=== PATIENT | female | born 1990 | race Caucasian/White ===

== ENCOUNTER 2024-01-16 14:50 | Outpatient (REF) | payer OTHER, SELFPAY ==
[2024-01-16 15:11] LABS: MANUAL DIFF FLAG NO
[2024-01-16 15:23] LABS: Basophils Percent Auto 0.4 % (0-2); Eosinophils Absolute Auto 0.1 X10*3/uL (0.0-0.4); Eosinophils Percent Auto 1.3 % (0-4); Hematocrit 42.6 % (37.0-47.0); Hemoglobin 14.3 g/dl (12.0-16.0); Imm Gran Abs Auto 0.06 X10*3/uL (0.00-0.03); Imm Gran Pct Auto 0.8 % (0.0-0.4); Lymphocytes Absolute Auto 2.2 X10*3/uL (1.2-4.9); Lymphocytes Percent Auto 28.8 % (20-40); Mean Corpuscular HGB Conc 33.6 g/dl (31.0-35.0); Mean Corpuscular Hemoglobin 29.9 pg (27.0-33.0); Mean Corpuscular Volume 89.1 fL (80.0-98.0); Mean Platelet Volume 10.6 fL (9.4-12.3); Monocytes Absolute Auto 0.8 X10*3/uL (0.1-1.2); Monocytes Percent Auto 9.9 % (2-11); Neutrophils Absolute Auto 4.6 x10*3/uL (2.0-8.3); Neutrophils Percent Auto 58.8 % (45-73); Platelet Count 242 X10*3/uL (160-400); Red Blood Count 4.78 X10*6/uL (4.20-5.50); Red Cell Distribution Width 12.3 % (11.0-16.0); White Blood Count 7.8 X10*3/uL (4.8-10.8)
[2024-01-16 15:57] LABS: Alanine Aminotransferase 14 U/L (0-31); Albumin Level 4.1 g/dL (3.5-5.0); Alkaline Phosphatase 66 U/L (39-117); Anion Gap 10 (12-20); Aspartate Amino Transferase 19 U/L (5-31); Bilirubin Total 0.3 mg/dL (0.0-1.0); Blood Urea Nitrogen 18 mg/dL (9-16); Calcium 9.7 mg/dL (8.4-10.2); Carbon Dioxide 26 mmol/L (22-29); Chloride 107 mmol/L (96-108); Cholesterol 170 mg/dL (<200); Estimated Glomerular Filt Rate > 60; Glucose Random 89 mg/dL (60-115); HDL Cholesterol 51 mg/dL (>40); LDL Cholesterol Calculated 102 mg/dL (<100); Potassium 4.2 mmol/L (3.3-5.1); Sodium 139 mmol/L (135-145); Total Protein 7.1 g/dL (6.5-8.0); Triglycerides 89 mg/dL (<150)
[2024-01-16 16:14] LABS: Free T4 (Free Thyroxine) 0.98 ng/dL (0.71-1.85); Thyroid Stimulating Hormone 0.86 uIU/mL (0.32-4.0)
== END 2024-01-16 14:51 | disposition home or self-care (01) ==
LOC: HO.LAB 14:50
PROVIDERS: PCP Internal Medicine; Visit Provider Internal Medicine
DX: R63.5 Abnormal weight gain (principal)
CPT/HCPCS: 36415; 80053; 80061; 84439; 84443; 85025

== ENCOUNTER 2025-05-03 15:33 | Outpatient (AMB) | payer BC, SELFPAY ==
--- NOTE | 2025-05-03 15:34 | MHC.PC.OV ---
Vital Signs 05/03/25 15:38 Height 5 ft 4 in Weight 87.543 kg BMI 33.1 BP 100/72 Respiration 14 Pulse 80 Pulse Source Pulse Oximeter Temp 97.8 F Temp Source Temporal Artery Scan Pulse Oximetry (%) 98 Oxygen Delivery Method Room Air Intake Visit Reasons: left foot pain - see comments Ice Cream Freezer Assistant Required: No Accompanied by: Self / Same As Patient Allergies No Known Allergies Allergy (Verified 05/03/25 15:37) Medication List - Last Reconciled 05/03/25 by DEVAN Castro bupropion HCl SR 100 mg PO DAILY HPI HPI Comments History of Present Illness Details 35 year old female presents to the office to establish care. Concerns: She has a history of depression and ADHD and is following with a psychiatrist. She is taking bupropion 100 mg daily. Reports that her ADHD causes issues with attention, executive function, life management and can result in missed appointments. She states it takes more effort to complete tasks. She does deny any SI/HI. PHQ-9 score 3, kelly 7 score 1 She is reporting bilateral foot pain ongoing for the last 6 months. More so left than right. Does intensify with walking as well as after a period of prolonged sitting. The pain is primarily over the arch of the foot as well as the ankle and heel. She states it is slightly improved with ibuprofen and changing her shoes that have been more supportive. She unfortunately though has had to reduce activity secondary to the pain. She also has class 1 obesity and reports she is working on weight loss. She is trying to be active but again is limited secondary to the foot pain. States over the last 5 years she has been struggling with her weight. She has tried fad diets which are not sustainable. She has been trying to maintain a calorie deficit and tracking calories. She has been eating fresh fruits and vegetables and working on portion control. She is also concerned about facial hair and acne as well as heavy menses though reports these are overall regular. She was previously on spironolactone. Health maintenance: Overdue for Pap-referred to message and delivery service pricer ROS: General: No fevers, malaise, unintentional weight loss. See HPI HEENT: No blurred vision, diplopia. No sore throat, nasal congestion, rhinorrhea, sinus pain, ear pain Cardiovascular: No chest pain, palpitations, or leg edema Respiratory: No shortness of breath, wheezing, cough MSK: See HPI Neuro: No headaches, weakness, paresthesias Skin: No rashes or lesions. See HPI EXAM: Constitutional - Awake and Alert, No apparent distress Eyes - PERRL Cardiovascular - S1S2, RRR, No edema Respiratory - Normal lung expansion, Normal respiratory effort, No respiratory distress, CTA bilaterally MSK - no bony abnormality. TTP at the insertion of the plantar fascia into the calcaneus bilaterally. Achilles tendon is intact with full range of motion of the ankles bilaterally. There is tenderness at the insertion of the Achilles into the calf muscles. no discomfort with plantar or dorsiflexion Extremities - no calf tenderness bilaterally, no swelling Skin - Warm/Dry Neurological - Alert & oriented x3. Sensation intact Psychological - Appropriate affect Questionnaire PHQ-9 Over the last 2 weeks, how often have you been bothered by any of the following problems? 1. Little interest or pleasure in doing things: not at all 2. Feeling down, depressed, or hopeless: not at all 3. Trouble falling or staying asleep, or sleeping too much: several days 4. Feeling tired or having little energy: several days 5. Poor appetite or overeating: not at all 6. Feeling bad about yourself - or that you are a failure or have let yourself or your family down: not at all 7. Trouble concentrating on things, such as reading the newspaper or watching television: several days 8. Moving or speaking so slowly that other people could have noticed. Or the opposite - being so fidgety or restless that you have been moving around a lot more than usual: not at all 9. Thoughts that you would be better off or of hurting yourself in some way: not at all Total score: 3 Source: Developed by Drs. Neno Resendiz, Radha Quispe, Randall Yusuf and colleagues, with an educational mark from [employer]. Thrive Questionnaire Date Thrive assessed: 05/03/25 I am a: Patient What is your living situation today?: I have a steady place to live Within the past 12 months, did the food you bought not last and you didn't have the money to get more?: Never true Within the past 12 months, did you worry whether your food would run out before you got money to buy more?: Never true Do you have trouble paying for medicines?: No Do you have trouble getting transportation to medical appointments?: No Do you have trouble paying your heating and electricity bill?: No Do you have trouble taking care of your child, family member or friend?: No Do you have trouble with day-to-day activities such as bathing, preparing meals, shopping, managing finances, etc.?: No Are you currently unemployed and looking for a job?: No Are you interested in more education?: No Please select the resources that you would like help with: None THRIVE Score: 0 KELLY-7 AMB Questionnaire KELLY-7 Date KLELY - 7 assessed: 05/03/25 Feeling nervous, anxious, or on edge: 0 = Not at all Not being able to stop or control worryin = Not at all Worrying too much about different things: 0 = Not at all Trouble relaxin = Not at all Being so restless that it is hard to sit still: 0 = Not at all Becoming easily annoyed or irritable: 1 = Several days Feeling afraid as if something awful might happen: 0 = Not at all Total KELLY-7 score (0-4 normal; 5-9 mild; 10-14 moderate; 15-21 severe): 1 Source: Developed by Drs. Neno Resendiz, Radha Quispe, Randall Yusuf and colleagues, with an educational mark from [employer]. Physical exam (Primary Care) Vital Signs: Last Vital Signs Temp 97.8 F 05/03/25 15:38 Pulse 80 05/03/25 15:38 Resp 14 05/03/25 15:38 BP 100/72 05/03/25 15:38 Pulse Ox 98 05/03/25 15:38 Oxygen Delivery Method Room Air 05/03/25 15:38 BMI result Body Mass Index 33.1 PHQ-9: PHQ-9 Score PHQ-9: Total score 3 05/04/25 13:32 Thrive Assessment: Date of Thrive Assessment Date Thrive assessed 05/03/25 05/03/25 15:46 Coding Level of Care Code New Pt Level 4 (76418) Complex EM visit Add On G2211 Diagnoses Bilateral plantar fasciitis M72.2 Depression with anxiety F41.8 Excess body and facial hair L68.9 Obesity E66.9 Assessment & Plan Assessment & Plan (1) Bilateral plantar fasciitis: Code(s): M72.2 - Plantar fascial fibromatosis Category: Medical Plan: Recommend supportive shoes and insoles, ibuprofen as needed. She is referred to physical therapy. Counseled on gentle exercises that can be performed at home. Suspect there is also component of Achilles tendonitis (2) Depression with anxiety: Code(s): F41.8 - Other specified anxiety disorders Category: Medical Plan: Stable overall. Continue bupropion and follow-up with psychiatric care team (3) Excess body and facial hair: Code(s): L68.9 - Hypertrichosis, unspecified Category: Medical Plan: Concerning for PCOS given associated acne and heavy menses. Hormone levels ordered for further evaluation, suspect elevated testosterone levels. We will consider therapy pending results of studies. She is referred to message and delivery service pricer (4) Obesity: Code(s): E66.9 - Obesity, unspecified Category: Medical Plan: BMI 33, class 1. Counseled on healthy diet and exercise stressing increased protein, fruits, vegetables and limiting refined sugars and simple carbohydrates. Continue with calorie deficit and increase exercise Plan Follow-up in the office for annual physical exam. She is referred to Dermatology as well as OBGYN. Labs to be completed following visit today. Referred to physical therapy. Orders: Orders Complete Blood Count Auto Diff 05/03/25 E66.9 - Obesity, unspecified, L68.9 - Hypertrichosis, unspecified, L70.9 - Acne, unspecified, N92.6 - Irregular menstruation, unspecified, Z13.220 - Encounter for screening for lipoid disorders Hemoglobin A1c 05/03/25 E66.9 - Obesity, unspecified, L68.9 - Hypertrichosis, unspecified, L70.9 - Acne, unspecified, N92.6 - Irregular menstruation, unspecified, Z13.220 - Encounter for screening for lipoid disorders Lipid Panel 05/03/25 E66.9 - Obesity, unspecified, L68.9 - Hypertrichosis, unspecified, L70.9 - Acne, unspecified, N92.6 - Irregular menstruation, unspecified, Z13.220 - Encounter for screening for lipoid disorders TSH reflex Free T4 05/03/25 E66.9 - Obesity, unspecified, L68.9 - Hypertrichosis, unspecified, L70.9 - Acne, unspecified, N92.6 - Irregular menstruation, unspecified, Z13.220 - Encounter for screening for lipoid disorders Prolactin 05/03/25 E66.9 - Obesity, unspecified, L68.9 - Hypertrichosis, unspecified, L70.9 - Acne, unspecified, N92.6 - Irregular menstruation, unspecified, Z13.220 - Encounter for screening for lipoid disorders Testosterone, Free/Total 05/03/25 E66.9 - Obesity, unspecified, L68.9 - Hypertrichosis, unspecified, L70.9 - Acne, unspecified, N92.6 - Irregular menstruation, unspecified, Z13.220 - Encounter for screening for lipoid disorders Lutenizing Hormone 05/03/25 E66.9 - Obesity, unspecified, L68.9 - Hypertrichosis, unspecified, L70.9 - Acne, unspecified, N92.6 - Irregular menstruation, unspecified, Z13.220 - Encounter for screening for lipoid disorders Basic Metabolic Panel 05/03/25 E66.9 - Obesity, unspecified, L68.9 - Hypertrichosis, unspecified, L70.9 - Acne, unspecified, N92.6 - Irregular menstruation, unspecified, Z13.220 - Encounter for screening for lipoid disorders Liver Panel 05/03/25 E66.9 - Obesity, unspecified, L68.9 - Hypertrichosis, unspecified, L70.9 - Acne, unspecified, N92.6 - Irregular menstruation, unspecified, Z13.220 - Encounter for screening for lipoid disorders PT Evaluation and Treatment 05/03/25 M72.2 - Plantar fascial fibromatosis, M76.60 - Achilles tendinitis, unspecified leg Referrals CONTROLLER INSTRUCTOR Referral Z12.4 - Encounter for screening for malignant neoplasm of cervix Dermatology Referral L68.9 - Hypertrichosis, unspecified, L70.9 - Acne, unspecified
[2025-05-03 15:38] VITALS: BP 100/72; PULSE 80; RESP 14; TEMP 36.6; O2SAT 98; BMI 33.1
== END 2025-05-03 16:17 | disposition home or self-care (01) ==
LOC: HO.HMCHD 15:33
PROVIDERS: PCP Internal Medicine; Visit Provider Physician Assistant
DX: M72.2 Plantar fascial fibromatosis (principal); F41.8 Other specified anxiety disorders; L68.9 Hypertrichosis, unspecified; E66.9 Obesity, unspecified

== ENCOUNTER → 2025-05-03 15:33 | Outpatient (BNVA) | payer BC, SELFPAY | PROVIDERS: PCP Internal Medicine; Visit Provider Physician Assistant ==

== ENCOUNTER 2025-06-17 08:34 | Outpatient (REF) | payer BC, SELFPAY ==
--- OUTSIDE RECORDS SUMMARY | 2025-06-17 08:46 | XMS_ITS | Clinical Summary ---
Author Organization [facility] Address [address] [place] [id number] Phone Care Team Providers Care Industrial Editor Name Role Phone Chris Murray MD Primary Care Provider Pcp, Unknown Unavailable Unavailable Allergies No known active allergies Medications omega 9-adn-ydk-fish oil (FISH OIL) 100-160-1,000 mg Cap Active buPROPion (WELLBUTRIN) 100 MG immediate release tablet Take 100 mg by mouth 2 (two) times a day. Active lamoTRIgine (LAMICTAL XR) 25 mg TR24 Take 75 mg by mouth daily. Active gabapentin (NEURONTIN) 100 MG capsule Take 100 mg by mouth 3 (three) times a day as needed. Active penicillin V potassium (VEETIDS) 500 MG tablet Take 1 tablet (500 mg total) by mouth 3 (three) times a day. 30 tablet Active Additional Information Patient not taking.Reported on 04/01/2023 Active Problems No known active problems Immunizations Immunization Administration Dates Next Due HPV, unspecified formulation 11/14/2009,03/14/20 08,12/17/2006 Hepatitis B, unspecified formulation 03/23/2002, 10/27/2001,09/22/2001 Influenza Quadrivalent MDCK Preservative Free IM 08/30/2020 Influenza, whole 08/30/2020 MMR 02/21/1995,05/07/1991 Tdap 02/28/2010 Family History Medical History Relation Comments Cancer Maternal Grandmother 2 Cancer Paternal Grandmother 2 Relation Status Comments Maternal Grandmother 1 Maternal Grandmother 2 Paternal Grandmother 1 Paternal Grandmother 2 Social History Tobacco Use Types Packs/Day Years Used Date Smoking Tobacco: Never Smokeless Tobacco: Never Tobacco Cessation:Counseling Given: Not Answered Alcohol Use Standard Drinks/Week Comments Yes 0 (1 standard drink = 0.6 oz pur e alcohol) Education Answer Date Recorded Are you interested in more education? Not on valerie e 03/21/2023 Are you concerned about learning? Not on file 03/21/2023 No 03/21/2023 No 03/21/2023 Digital Access Answer Date Recorded No 04/18/2023 No 04/18/2023 Reliable internet access at home? Not on file 04/18/2023 Device with a working camera? Not on file Comments Unknown Sex and Gender Information Value Date Recorded Sex Assigned at Not on file Legal Sex Female 9:04 PM EDT Gender Identity Not on file Sexual Orientation Not on file Last Filed Vital Signs Vital Sign Reading Time Taken Comments Blood Pressure 118/77 04/01/2023 6:27 PM EDT Pulse 89 04/01/2023 6:27 PM EDT Temperature 36.7 C (98 F) 04/01/2023 6:27 PM EDT Respiratory Rate 16 04/01/2023 6:27 PM EDT Oxygen Saturation 98% 04/01/2023 6:27 PM EDT Inhaled Oxygen Concentration - - Weight 70.3 kg (155 lb) 04/01/2023 6:27 PM EDT Height 162.6 cm (5' 4 ) 04/01/2023 6:27 PM EDT Body Mass Index 26.61 04/01/2023 6:27 PM EDT Plan of Treatment Health Maintenance Due Date Last Done Comments DEPRESSION SCREENING 2002 HEPATITIS C SCREENING 01/26/2008 HIV ONE-TIME SCREENING (18-6 5 YEARS) 01/26/2008 PAP SMEAR 2011 Adult Td,Tdap Booster 02/29/2020 02/28/2010 COVID-19 VACCINE (2023-2 5 season) 2024 03/23/2021, 02/22/2021 SCREENING FOR DIABETES 2025 SMOKING STATUS SCREENING (On ce After 26 Yrs) Completed 04/01/2023 HEPATITIS A VACCINES Aged Out No long er eligible based on patient's age to complete this topic HIB VACCINES Aged Out No longer eligi ble based on patient's age to complete this topic MENINGOCOCCAL VACCINES (ACWY) Aged Out No longer eligible based on patient's age to complete this topic MENINGOCOCCAL VACCINES (B) Aged Out N o longer eligible based on patient's age to complete this topic PNEUMOCOCCAL VACCINES (0-49 years) Aged Out No longer eligible b ased on patient's age to complete this topic Medical Devices Not on file [facility] [employer] [facility] [address] [place] [address] [employer] [facility] [employer] [facility] [address] [place] [address] [place] [address] [facility] [employer] [facility] [place] [employer] [facility] Care Teams Industrial Editor Relationship Specialty Start Date End Date Chris Murray MD [address] [place] [address] [place] [address] PCP - General Internal Medicine 03/05/23 Pcp, Unknown 11/27/17 Additional Source Comments The information contained in this document represents components of the legal health record. It is not the complete legal health record.[facility]
[2025-06-17 09:47] LABS: MANUAL DIFF FLAG NO
[2025-06-17 09:50] LABS: Hematocrit 42.3 % (37.0-47.0); Hemoglobin 13.9 g/dl (12.0-16.0); Imm Gran Abs Auto 0.05 X10*3/uL (0.00-0.03); Imm Gran Pct Auto 0.7 % (0.0-0.4); Lymphocytes Absolute Auto 2.1 X10*3/uL (1.2-4.9); Mean Corpuscular HGB Conc 32.9 g/dl (31.0-35.0); Mean Corpuscular Hemoglobin 29.8 pg (27.0-33.0); Mean Corpuscular Volume 90.6 fL (80.0-98.0); NRBC Abs Auto 0.000 X10*3/uL (0.0-0.012); NRBC Pct Auto 0.0 /100WBC (0.0-0.2); Platelet Count 193 X10*3/uL (160-400); Red Blood Count 4.67 X10*6/uL (4.20-5.50); White Blood Count 7.7 X10*3/uL (4.8-10.8)
[2025-06-17 10:01] LABS: Hemoglobin A1C 114.1686 umol/L; Total Hemoglobin (HGBA1C) 3576.2772 umol/L
[2025-06-17 10:06] LABS: Alanine Aminotransferase 21 U/L (0-31); Albumin Level 4.4 g/dL (3.5-5.0); Alkaline Phosphatase 65 U/L (39-117); Anion Gap 11 (12-20); Aspartate Amino Transferase 23 U/L (5-31); Blood Urea Nitrogen 16 mg/dL (9-16); Calcium 9.2 mg/dL (8.4-10.2); Carbon Dioxide 25 mmol/L (22-29); Chloride 108 mmol/L (96-108); Cholesterol 179 mg/dL (<200); Estimated Glomerular Filt Rate > 60; HDL Cholesterol 51 mg/dL (>40); Potassium 4.3 mmol/L (3.3-5.1); Sodium 140 mmol/L (135-145); Total Protein 7.0 g/dL (6.5-8.0); Triglycerides 51 mg/dL (<150)
[2025-06-23 11:04] LABS: Testosterone, Free 4.2 pg/mL (0.1-6.4)
== END 2025-06-17 08:35 | disposition home or self-care (01) ==
LOC: HO.10HDL 08:34
PROVIDERS: Visit Provider Physician Assistant
DX: L68.9 Hypertrichosis, unspecified (principal); L70.9 Acne, unspecified; E66.9 Obesity, unspecified; N92.6 Irregular menstruation, unspecified; Z13.220 Encounter for screening for lipoid disorders; Z13.1 Encounter for screening for diabetes mellitus
CPT/HCPCS: 36415; 80048; 80061; 80076; 83002; 83036; 84146; 84402; 84403; 84443; 85025

== ENCOUNTER 2025-07-19 08:32 | Outpatient (AMB) | payer BC, SELFPAY ==
--- NOTE | 2025-07-19 08:33 | MHC.PC.OV ---
Vital Signs 07/19/25 08:36 Height 5 ft 4 in Weight 89.358 kg BMI 33.8 BP 128/76 Respiration 14 Pulse 82 Pulse Source Pulse Oximeter Temp 97.1 F Temp Source Temporal Artery Scan Pulse Oximetry (%) 98 Oxygen Delivery Method Room Air Intake Visit Reasons: Physical Building Illuminating Engineer Required: No Accompanied by: Self / Same As Patient Allergies No Known Allergies Allergy (Verified 07/19/25 08:35) Medication List - Last Reconciled 07/19/25 by DEVAN Castro bupropion HCl SR 100 mg PO DAILY dextroamphetamine-amphetamine 10 mg ER (Adderall XR) 10 mg PO DAILY Tobacco use date assessed: 07/19/25 Dental Screening Dental Screen Date: 07/19/25 Did you have a dental visit in the last 12 months?: Yes Did you have a dental problem in the last 6 months where you did not have access to dental care?: No Was dental information given to patient?: No HPI HPI Comments History of Present Illness Details 35-year-old female with history of depression anxiety, ADHD, elevated prolactin level presents to the office today for management of chronic conditions and for annual physical exam. She currently lives at home with her and daughter and feels safe there. She works as a teacher. Reports alcohol use about twice weekly. She has a remote history of cigarette smoking-smoked . No illicit drugs. Does use marijuana about once weekly. History of ADHD-finding more difficulty with task completion, focusing, keeping up with administrative work. She was previously on Adderall in the past Depression/anxiety-overall controlled with Wellbutrin. Does have some highs and lows that are not overly bothersome. No SI Bilateral plantar fasciitis-was referred to physical therapy but has not scheduled appointment Elevated prolactin level-refer to endocrinology. Additional hormone levels within normal limits Obesity- concerns about slow weight gain. She is trying to count calories and go to the gym with limited success. Concerns: None other than above Health Maintenance: FH breast cancer maternal grandmother age 35- due for mammo Colonoscopy to start at age 45 Upcoming VIDEO ARCADE MANAGER appt for pap Has not gone to the eye doctor Does go to the dentist, maybe once yearly Has upcoming skin check ROS: General: No fevers, malaise, unintentional weight loss HEENT: No blurred vision, diplopia. No sore throat, nasal congestion, rhinorrhea, sinus pain, ear pain. No hearing loss Neck - no adenopathy Cardiovascular: No chest pain, palpitations, or leg edema Respiratory: No shortness of breath, wheezing, cough Breast: No pain, palpable lumps, nipple inversion GI: No dysphagia, odynophagia, globus sensation. No abdominal pain, nausea, vomiting, diarrhea, constipation, melena, hematochezia : No dysuria, hematuria, increased urinary frequency, decreased urinary output. Endo- see hpi VIDEO ARCADE MANAGER: No abn vaginal bleeding or discharge MSK: No myalgia, back pain, arthralgias Neuro: No headaches, weakness, paresthesias Psych: no depression/anxiery. No AH/VH. No SI/HI. see hpi Skin: No rashes or lesions EXAM: Constitutional - Awake and Alert, No apparent distress Eyes - PERRLA, EOMI. Anicteric Ears - external ears normal, canals clear, TMs intact and pearly mccarty with good cone of light Nose- septum midline, nares clear, no sinus tenderness Mouth/throat- mucosa moist, tongue and uvula midline, no erythema/edema or tonsillar adenopathy. Neck-trachea midline, thyroid symmetric without palpable nodules, no adenopathy Cardiovascular - S1S2, RRR, No edema Respiratory - Normal lung expansion, Normal respiratory effort, No respiratory distress, CTA bilaterally Gastrointestinal - NT / ND; +BS; No rebound or guarding - No CVA tenderness Extremities - no calf tenderness bilaterally, no swelling Musculoskeletal - Normal inspection, normal ROM Skin - Warm/Dry, no concerning lesions Neurological - Alert & oriented x3, CN II-XII in tact, 5/5 strength BUE and BLE, 2+ patellar reflexes, sensation intact Psychological - Appropriate affect [facility] Medical History (Updated 07/19/25 @ 09:12 by DEVAN Castro) ADHD Depression with anxiety Elevated prolactin level Surgical History (Updated 07/19/25 @ 08:50 by DEVAN Castro) No pertinent past surgical history Family History (Updated 07/19/25 @ 08:53 by DEVAN Castro) Paternal Grandmother Breast cancer Maternal Grandfather Breast cancer, Onset Age: 35 Social History Housing: Apartment Patient Tobacco Use Status: Former Tobacco user (Quite in 2009) e-Cigarette/Vaping Use: Never Used service: No Current occupational status: employed Cognitive needs: No Hearing needs: No Vision needs: No Questionnaire Thrive Questionnaire Date Thrive assessed: 05/03/25 KELLY-7 AMB Questionnaire KELLY-7 Date KELLY - 7 assessed: 05/03/25 Source: Developed by Drs. Neno Resendiz, Radha Quispe, Randall Yusuf and colleagues, with an educational mark from [employer]. Physical exam (Primary Care) Vital Signs: Last Vital Signs Temp 97.1 F 07/19/25 08:36 Pulse 82 07/19/25 08:36 Resp 14 07/19/25 08:36 BP 128/76 07/19/25 08:36 Pulse Ox 98 07/19/25 08:36 Oxygen Delivery Method Room Air 07/19/25 08:36 BMI result Body Mass Index 33.8 Tobacco/Smoking Status: Tobacco use Status Tobacco use date assessed 07/19/25 07/19/25 08:38 Patient Tobacco Use Status Former Tobacco user (Quite 07/19/25 08:38 in 2009) e-Cigarette/Vaping Use Never Used 07/19/25 08:38 Thrive Assessment: Date of Thrive Assessment Date Thrive assessed 05/03/25 07/19/25 08:38 Coding Level of Care Code Est Pt Level 4 (22209) Est Pt Prev Care 18-39y(59270) Diagnoses Routine medical exam Z00.00 FH: breast cancer in relative when <45 years old Z80.3 Depression with anxiety F41.8 ADHD F90.9 Elevated prolactin level R79.89 Assessment & Plan Assessment & Plan (1) Routine medical exam: Code(s): Z00.00 - Encounter for general adult medical examination without abnormal findings Plan: Plan as below. Continue working on weight loss efforts with healthy diet lower in calories and focusing on higher protein, fruits, vegetables and limiting refined sugars and highly processed foods with regular exercise (2) FH: breast cancer in relative when <45 years old: Code(s): Z80.3 - Family history of malignant neoplasm of breast Category: Medical Plan: Referred for screening colonoscopy. Follow-up with manager of corporate (3) Depression with anxiety: Code(s): F41.8 - Other specified anxiety disorders Category: Medical Plan: Can continue on Wellbutrin (4) ADHD: Code(s): F90.9 - Attention-deficit hyperactivity disorder, unspecified type Category: Medical Plan: Trial Adderall 10 mg XR daily. Counseled on side effects (5) Elevated prolactin level: Code(s): R79.89 - Other specified abnormal findings of blood chemistry Category: Medical Plan: Referral placed to endocrinology and scheduled for next month Plan Routine screening labs as ordered below Continue with screening mammograms, Pap smears, colonoscopies age appropriate Continue following for annual skin exams and use sun protection Annual eye exams Wear seat belt in car Recommend regular exercise and healthy diet f/u 4-6 mnths Orders: Orders MM tomosynthesis added view BI Today Z12.31 - Encounter for screening mammogram for malignant neoplasm of breast, Z80.3 - Family history of malignant neoplasm of breast Medications: New dextroamphetamine-amphetamine 10 mg ER (Adderall XR) Partial Fill upon patient request. 10 mg PO DAILY 30 caps 0RF Patient Instructions: Sign up for portal Trial adderall 10mg XR daily. Can trial off bupropion to see how you do, resume if needed. Let me know Follow up with endo- perhaps these things will ultimately help with weight loss. Message me with questions concerns I will see you in 4-6 months
[2025-07-19 08:36] VITALS: BP 128/76; PULSE 82; RESP 14; TEMP 36.2; O2SAT 98; BMI 33.8
--- OUTSIDE RECORDS SUMMARY | 2025-07-19 08:44 | XMS_ITS | Clinical Summary ---
Author Organization [facility] Address [address] [place] [phone] Phone Care Team Providers Care Sifting Operator Name Role Phone Chris Murray MD Primary Care Provider Pcp, Unknown Unavailable Unavailable Allergies No known active allergies Medications omega 0-bfu-bdk-fish oil (FISH OIL) 100-160-1,000 mg Cap Active [...] topic Medical Devices Not on file [facility] [facility] [address] [place], [place] [address] [employer] [facility] [employer] [facility] [address] [place] [place] [address] [place] [address] [facility] HEALTH Universal [employer] [facility] [place] [employer] [facility] Care Teams Sifting Operator Relationship Specialty Start Date End Date Chris Murray MD [address] [place] [address] [place] [address] PCP - General Internal Medicine 03/05/23 Pcp, Unknown 11/27/17 Additional Source Comments The information contained in this document represents components of the legal health record. It is not the complete legal health record.[facility]
== END 2025-07-19 09:09 | disposition home or self-care (01) ==
LOC: HO.HMCHD 08:32
PROVIDERS: PCP Internal Medicine; Visit Provider Physician Assistant
DX: Z00.00 Encounter for general adult medical examination without abnormal findings (principal); F41.8 Other specified anxiety disorders; F90.9 Attention-deficit hyperactivity disorder, unspecified type; R79.89 Other specified abnormal findings of blood chemistry; Z80.3 Family history of malignant neoplasm of breast

== ENCOUNTER 2025-08-23 09:59 | Outpatient (AMB) | payer BC, SELFPAY ==
--- NOTE | 2025-08-23 10:00 | MHC.OFFVIS ---
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 Assistant Director Of Security Required: No Accompanied by: Self / Same As Patient Allergies No Known Allergies Allergy (Verified 08/23/25 10:04) Medication List - Last Reconciled 08/23/25 by Neno Calderón MD bupropion HCl SR 100 mg PO DAILY dextroamphetamine-amphetamine 10 mg ER (Adderall XR) 10 mg PO QAM HPI Comments Details: This is a 35-year-old white female sent to endocrinology for evaluation of increased prolactin level. Patient learned about the increased prolactin level recently . She is currently taking bupropion and Adderall but appears since she started the Adderall after the elevated prolactin level. Menses are irregular and may be missing . Patient not attempting . Patient denies galactorrhea. She has normal thyroid function studies as well as normal kidney and liver function. Denies loss of vision but some occasional headaches.Daughter is 13 yrs ago. Not taking neurolepics . The patient is a 35-year-old female presenting with elevated prolactin levels. This was first identified in the most recent blood work, and she was previously on bupropion at the time of the test. She has since discontinued bupropion and is currently taking Adderall. The patient reports irregular menstrual cycles, although she does not track them closely. She denies any breast discharge and is not currently attempting to conceive. The patient has a history of acne and hirsutism, which may suggest a hormonal imbalance or PCOS. She has previously used spironolactone for acne management. The patient has experienced weight gain over the past few years without significant lifestyle changes. She also reports occasional headaches, which she attributes to dehydration. There is no family history of diabetes, but the patient is concerned about insulin resistance as a potential underlying issue. She denies any symptoms suggestive of [place]'s syndrome. Spironolactone: Taken for acne management in the past [facility] Medical History (Updated 07/19/25 @ 09:12 by DEVAN Castro) ADHD Depression with anxiety Elevated prolactin level Surgical History (Updated 07/19/25 @ 08:50 by DEVAN Castro) No pertinent past surgical history Family History (Updated 07/19/25 @ 08:53 by DEVAN Castro) Paternal Grandmother Breast cancer Maternal Grandfather Breast cancer, Onset Age: 35 Social History Housing: Apartment Patient Tobacco Use Status: Former Tobacco user (Quite in 2009) e-Cigarette/Vaping Use: Never Used service: No Current occupational status: employed Cognitive needs: No Hearing needs: No Vision needs: No Physical Exam Const Other: There is absence of acromegalic features. Visual mckoy are grossly intact. Thyroid gland is normal size weighs about 15 g. There are no thyroid nodules palpated. Breast exam proctored by a medical laboratory technologist showed the absence of any breast masses or discharge with either breast . Assessment & Plan Assessment & Plan (1) Elevated prolactin level: Code(s): R79.89 - Other specified abnormal findings of blood chemistry Category: Medical Plan: 35-year-old white female found to have elevated prolactin level. Rule out . Thyroid, liver and kidney function are normal. There are case reports of bupropion causing elevated prolactin. Plan is to repeat prolactin fasting off bupropion as well as obtain a test. If the test is negative in the prolactin is still elevated, could talk to psychiatry about holding the bupropion to see if normalizes the prolactin. If this can not be done or prolactin does not normalized, may need to get MRI of the pituitary gland. And 17 hydroxy progesterone 1. Hyperprolactinemia The patient presents with elevated prolactin levels, initially identified while on bupropion. The plan includes repeating the prolactin test while fasting and conducting a test to rule out as a cause. If prolactin remains elevated, imaging of the pituitary gland will be considered to check for microadenomas or macroadenomas. 2. Polycystic Ovary Syndrome (PCOS) The patient exhibits symptoms suggestive of PCOS, including irregular menses, acne, and hirsutism. A detailed hormonal workup, including DHEAS levels and 17 hydroxy progesterone, is planned to further evaluate the condition. Consideration of control pills or spironolactone for symptom management is discussed. 3. Insulin Resistance The patient is concerned about insulin resistance, potentially linked to PCOS. Lifestyle modifications, including weight management, are recommended. The use of GLP-1 agonists like Ozempic is discussed as a potential treatment option, although insurance coverage may be a barrier. During the visit, I discussed with the patient the potential causes of her elevated prolactin levels, including medication effects and the possibility of a pituitary adenoma. We reviewed the importance of repeating the prolactin test under fasting conditions and conducting a test. I explained the potential link between her symptoms and PCOS, and the role of insulin resistance in her condition. We discussed treatment options, including hormonal therapy and lifestyle modifications, and the potential use of GLP-1 agonists, considering insurance coverage challenges. I advised her to follow up with her DINING ROOM ATTENDANT and consider further endocrinological evaluation if symptoms persist. - Schedule a fasting blood test for prolactin and a test. - Follow up with your DINING ROOM ATTENDANT for further evaluation of PCOS symptoms. - Consider lifestyle changes to manage weight and insulin resistance. - Contact the office if you do not receive test results within three weeks. The patient had an opportunity to ask questions regarding treatment plan. The patient expressed understanding and agreement with the above treatment plan. Patient was informed and verbally consented to the use of an ambient scribe for clinic note documentation during this visit. Orders: Orders Prolactin Today R79.89 - Other specified abnormal findings of blood chemistry HCG Quantitative Today R7.89 - Other specified abnormal findings of blood chemistry DHEA Sulfate Today R79.89 - Other specified abnormal findings of blood chemistry 17 Hydroxyprogesterone Today R79.89 - Other specified abnormal findings of blood chemistry Coding Level of Care Code New Pt Level 4 (43251) Diagnoses Elevated prolactin level R7.89
[2025-08-23 10:01] VITALS: BP 98/72; PULSE 85; O2SAT 98; BMI 33.3
--- OUTSIDE RECORDS SUMMARY | 2025-08-23 10:58 | XMS_ITS | Clinical Summary ---
Author Organization [facility] Address [address] [place] [phone] Phone Care Team Providers Care Custodial Operations Manager Name Role Phone Chris Murrya MD Primary Care Provider Pcp, Unknown Unavailable Unavailable Allergies No known active allergies Medications omega 5-sqn-ych-fish oil (FISH OIL) 100-160-1,000 mg Cap Active [...] SMEAR 2011 Adult Td,Tdap Booster 02/29/2020 02/28/2010 SCREENING FOR DIABETES 2025 INFLUENZA VACCINE (#1) 2025 , 08/30/2020 COVID-19 VACCINE (3 2024-2 6 season) 2025 03/23/2021, 02/22/2021 SMOKING STATUS SCREENING (On ce After 26 [...] topic Medical Devices Not on file Insurance [facility] [employer] [facility] [employer] [facility] [place] [employer] [facility] [place] [facility] [place] [employer] [facility] [place] [facility] Care Teams Custodial Operations Manager Relationship Specialty Start Date End Date Chris Murray MD [address] [place] [address] [place] [address] PCP - General Internal Medicine 03/05/23 Pcp, Unknown 11/27/17 Additional Source Comments The information contained in this document represents components of the legal health record. It is not the complete legal health record.[facility]
== END 2025-08-23 10:45 | disposition home or self-care (01) ==
LOC: HO.ENCR 09:59
PROVIDERS: PCP Internal Medicine; Visit Provider Internal Medicine Endocrinology, Diabetes & Metabolism
DX: R79.89 Other specified abnormal findings of blood chemistry (principal)
CPT/HCPCS: 99204

== ENCOUNTER 2025-10-28 15:32 | Outpatient (AMB) | payer BC, SELFPAY ==
--- NOTE | 2025-10-28 15:35 | MHC.PC.OV ---
Vital Signs 10/28/25 15:36 Height 5 ft 4 in Weight 87.77 kg BMI 33.2 BP 112/80 Blood Pressure Location Lt brachial Position Sitting Respiration 16 Pulse 76 Pulse Source Pulse Oximeter Temp 97.1 F Temp Source Temporal Artery Scan Pulse Oximetry (%) 97 Oxygen Delivery Method Room Air Intake Visit Reasons: ? 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 History of ADHD-finding more difficulty with task completion, focusing, keeping up with administrative work. Improved with addition of adderall Depression/anxiety-overall controlled. Dc'd wellbutrin. Bilateral plantar fasciitis-was referred to physical therapy but has not scheduled appointment Elevated prolactin level-refer to endocrinology. Additional hormone levels within normal limits Obesity- concerns about slow weight gain. She is trying to count calories and go to the gym with limited success. Acne- on doxycycline 100mg bid Concerns: Tick bite 09/05 R inner thigh, had been hiking 09/01. Was red around the bite, but no other rash on her body that she was aware of. Reports chronic fatigue. Has right knee pain of unclear etiology, but no other arthralgia. No other symptoms consistent with lyme. On doxy 100mg bid for acne, did not take single 200mg dose after tick bite R knee pain- ongoing weeks. No specific injury. Does kneel a lot at work. Pain worse at night. ROS: none EXAM: Constitutional - Awake and Alert, No apparent distress Eyes - PERRL Cardiovascular - S1S2, RRR, No edema Respiratory - Normal lung expansion, Normal respiratory effort, No respiratory distress, CTA bilaterally Extremities - no calf tenderness bilaterally, no swelling Skin - Warm/Dry Neurological - Alert & oriented x3 Psychological - Appropriate affect [facility] Medical History (Updated 10/28/25 @ 15:46 by DEVAN Castro) ADHD Depression with anxiety Elevated prolactin level Surgical History No pertinent past surgical history Family History Paternal Grandmother Breast cancer Maternal Grandfather Breast cancer, Onset Age: 35 Social History Housing: Apartment Patient Tobacco Use Status: Former Tobacco user (Quite in 2009) e-Cigarette/Vaping Use: Never Used service: No Current occupational status: employed Cognitive needs: No Hearing needs: No Vision needs: No Questionnaire Thrive Questionnaire Date Thrive assessed: 05/03/25 AUDIT C Alcohol Use Questionnaire (AUDIT-C) 1. How often do you have a drink containing alcohol?: Monthly or less 2. How many drinks containing alcohol do you have on a typical day when you are drinking?: 1 or 2 3. How often do you have six or more drinks on one occasion?: Never Total Score: 1 KELLY-7 AMB Questionnaire KELLY-7 Date KELLY - 7 assessed: 05/03/25 Source: Developed by Drs. Neno Resendiz, Radha Quispe, Randall Yusuf and colleagues, with an educational mark from [employer]. Physical exam (Primary Care) Vital Signs: Last Vital Signs Temp 97.1 F 10/28/25 15:36 Pulse 76 10/28/25 15:36 Resp 16 10/28/25 15:36 BP 112/80 10/28/25 15:36 Pulse Ox 97 10/28/25 15:36 Oxygen Delivery Method Room Air 10/28/25 15:36 BMI result Body Mass Index 33.2 Tobacco/Smoking Status: Tobacco use Status Tobacco use date assessed 07/19/25 10/28/25 15:40 Patient Tobacco Use Status Former Tobacco user (Quite 10/28/25 15:40 in 2009) e-Cigarette/Vaping Use Never Used 10/28/25 15:40 Thrive Assessment: Date of Thrive Assessment Date Thrive assessed 05/03/25 10/28/25 15:40 Coding Level of Care Code Est Pt Level 4 (70938) Complex visit Add On G2211 Diagnoses Tick bite W57.XXXA Acne L70.9 Elevated prolactin level R79.89 Depression with anxiety F41.8 ADHD F90.9 Assessment & Plan Assessment & Plan (1) Tick bite: Code(s): W57.XXXA - Bitten or stung by nonvenomous insect and other nonvenomous arthropods, initial encounter Category: Medical Plan: Asymptomatic. Has been taking doxycycline 100mg bid for acne, but did not take a single 200mg dose. Would not be of benefit given time since bute. Will check for lyme and other tick borne illness. (2) Acne: Code(s): L70.9 - Acne, unspecified Category: Medical Plan: Continue following with endo. Continue on doxy 100mg bid for now. Can consider changing to spironolactone. (3) Elevated prolactin level: Code(s): R79.89 - Other specified abnormal findings of blood chemistry Category: Medical Plan: Reviewed last endocrinology note. Possibly r/t wellbutrin use. Recheck labs as ordered by endo. Will continue following (4) Depression with anxiety: Code(s): F41.8 - Other specified anxiety disorders Category: Medical Plan: Stable remain off of wellbutrin. Continue on adderall (5) ADHD: Code(s): F90.9 - Attention-deficit hyperactivity disorder, unspecified type Category: Medical Plan: continue on adderall Plan Follow up in 2 months Orders: Orders Lyme IgG/IgM w/reflex to WB 10/28/25 W57.XXXA - Bitten or stung by nonvenomous insect and other nonvenomous arthropods, initial encounter Tick-borne Disease Molecular 10/28/25 W57.XXXA - Bitten or stung by nonvenomous insect and other nonvenomous arthropods, initial encounter
[2025-10-28 15:36] VITALS: BP 112/80; PULSE 76; RESP 16; TEMP 36.2; O2SAT 97; BMI 33.2
--- OUTSIDE RECORDS SUMMARY | 2025-10-28 19:31 | XMS_ITS | Clinical Summary ---
Author Organization [facility] Address [address] [place] [phone] Phone Care Team Providers Care Ethanol Operator Name Role Phone Chris Murray MD Primary Care Provider Pcp, Unknown Unavailable Unavailable Allergies No known active allergies Medications omega 3-mdg-vte-fish oil (FISH OIL) 100-160-1,000 mg Cap Active [...] topic Medical Devices Not on file Insurance [facility] [employer] [facility] [employer] [facility] [place] [employer] [facility] [place] [facility] [place] [facility] [place] [facility] Care Teams Ethanol Operator Relationship Specialty Start Date End Date Chris Murray MD [address] [place] [address] [place] [address] PCP - General Internal Medicine 03/05/23 Pcp, Unknown 11/27/17 Additional Source Comments The information contained in this document represents components of the legal health record. It is not the complete legal health record.[facility]
== END 2025-10-28 15:54 | disposition home or self-care (01) ==
LOC: HO.HMCHD 15:32
PROVIDERS: PCP Internal Medicine; Visit Provider Physician Assistant
DX: T63.481A Toxic effect of venom of other arthropod, accidental (unintentional), initial encounter (principal); L70.9 Acne, unspecified; R79.89 Other specified abnormal findings of blood chemistry; F41.8 Other specified anxiety disorders; F90.9 Attention-deficit hyperactivity disorder, unspecified type

== ENCOUNTER 2025-10-28 15:32 | Outpatient (REF) | payer BC, SELFPAY ==
[2025-10-29 10:38] LABS: Lyme Abs Screen <0.90 index
[2025-11-01 09:29] LABS: A. Phagocytphilium DNA,RT-PCR NOT DETECTED (NOT DETECTED); Babesia Microti DNA, RT-PCR NOT DETECTED (NOT DETECTED); Borrelia Miyamotoi,DNA RT-PCR NOT DETECTED (NOT DETECTED); E.Chaffeensis DNA RT-PCR NOT DETECTED (NOT DETECTED); Lyme(Borrelia ssp)DNA RT-PCR NOT DETECTED (NOT DETECTED)
== END 2025-10-28 15:33 | disposition home or self-care (01) ==
LOC: HO.LAB 15:32
PROVIDERS: PCP Internal Medicine; Visit Provider Physician Assistant
DX: T14.8XXA Other injury of unspecified body region, initial encounter (principal); W57.XXXA Bitten or stung by nonvenomous insect and other nonvenomous arthropods, initial encounter
CPT/HCPCS: 36415; 86617; 86618; 87468; 87469; 87478; 87484; 87798

== ENCOUNTER 2025-11-16 10:00 | Outpatient (REF) | payer BC, SELFPAY ==
--- OUTSIDE RECORDS SUMMARY | 2025-11-16 10:12 | XMS_ITS | Clinical Summary ---
Author Organization [facility] Address [address] [place] [address] Phone Care Team Providers Care Telesales Manager Name Role Phone Chris Murray MD Primary Care Provider Pcp, Unknown Unavailable Unavailable Allergies No known active allergies Medications omega 7-otl-khy-fish oil (FISH OIL) 100-160-1,000 mg Cap Active [...] topic Medical Devices Not on file [facility] [employer] [facility] [employer] [facility] [place] [employer] [facility] [place] [facility] [place] [employer] [facility] [place] [facility] Care Teams Telesales Manager Relationship Specialty Start Date End Date Chris Murray MD [address] [place] [address] [place] [address] PCP - General Internal Medicine 03/05/23 Pcp, Unknown 11/27/17 Additional Source Comments The information contained in this document represents components of the legal health record. It is not the complete legal health record.[facility]
== END 2025-11-16 10:01 | disposition home or self-care (01) ==
LOC: HO.10HDL 10:00
PROVIDERS: Internal Medicine Endocrinology, Diabetes & Metabolism; Visit Provider Physician Assistant
DX: L70.0 Acne vulgaris (principal); L90.5 Scar conditions and fibrosis of skin; R79.89 Other specified abnormal findings of blood chemistry; Z32.00 Encounter for pregnancy test, result unknown
CPT/HCPCS: 36415; 82627; 83498; 84146; 84702